=== PATIENT | female | born 1965 ===

== ENCOUNTER 2024-09-29 12:50 | Emergency (ER) | payer SELFPAY ==
[2024-09-29 12:53] VITALS: BMI 35.9
[2024-09-29 13:09] VITALS: BP 190/78; PULSE 88; RESP 19; TEMP 37; O2SAT 96
--- NOTE | 2024-09-29 13:14 | PD.EDDENTL ---
ED Dental RME/HPI General Chief complaint: General Adult/Misc Complain Stated complaint: L FACIAL NERVE PAIN X YESTERDAY Time Seen by Provider: 09/29/24 13:10 Arrival date/time: 09/29/24 12:50 Limitations: no limitations RME / HPI RME / HPI Narrative: Patient is a 58-year-old female with no chronic medical history is here today with dental pain. She developed left lower dental pain yesterday. Denies any trauma. Has no fevers or chills. Has no drooling or trismus. Has no neck pain. She has no other acute complaints. She states he has a history depression but no other diagnoses. Related Data Previous Rx's ?Medication ?Instructions ?Recorded amoxicillin 875 mg-potassium 1 tab PO BID #14 tabs 09/29/24 clavulanate 125 mg tablet ibuprofen 600 mg tablet 600 mg PO TID PRN pain #20 tabs 09/29/24 Allergies Allergy/AdvReac Type Severity Reaction Status Date / Time No Known Allergies Allergy Verified 09/29/24 12:58 Review of Systems Review of Systems Systems Reviewed: All systems reviewed, normal except as documented ED Exam General Limitations: Present no limitations General appearance: Present alert, anxious and in distress Head Head exam: Present atraumatic Eye Eye exam: Present normal appearance, PERRL and EOMI ENT ENT exam: Present normal exam, normal oropharynx, mucous membranes moist and other (no gumline erythema or fluctuance ) Neck Neck exam: Present normal inspection, full ROM and trachea midline Chest Chest inspection: Present normal inspection and symmetric chest wall rise Respiratory Respiratory exam: Present normal lung sounds bilaterally Cardiovascular Cardiovascular exam: Present regular rate, normal rhythm and normal heart sounds Abdominal Exam Abdominal exam: Present soft and normal bowel sounds Extremities Exam Extremities exam: Present normal inspection and full ROM Back Exam Back exam: Present normal inspection and full ROM Neurological Exam Neurological exam: Present alert and oriented X3 Psychiatric Psychiatric exam: Present normal affect and anxious Skin Skin exam: Present warm, dry, intact and normal color Course Quality Measures none Orders Category Date Time Status Amoxicillin/Pot Clav 875 [Augmentin 875] Med 09/29/24 13:14 Discontinued 1 tab PO X1 ONE HYDROcodone*/APAP 5/325 [Amelia 5/325] Med 09/29/24 13:14 Discontinued 1 tab PO X1 ONE Ibuprofen Tab [Motrin Tab] Med 09/29/24 13:14 Discontinued 600 mg PO X1 ONE Vital Signs Vital signs: Vital Signs Temperature 98.6 F 09/29/24 13:09 Pulse Rate 88 09/29/24 13:09 Respiratory Rate 19 09/29/24 13:09 Blood Pressure 190/78 H 09/29/24 13:09 Pulse Oximetry (%) 96 09/29/24 13:09 Oxygen Delivery Method Room Air 09/29/24 13:09 Dental / Oral MDM Narrative MDM Narrative:: 58 year old female here with 1 day history of left lower dental pain. Denies trauma, fevers, or drooling. On exam patient is uncomfortable. But nontoxic-appearing. She has no trismus or drooling. She has no stridor. She has no gumline erythema or abscess. Patient is being discharged with a prescription of Augmentin. She is asked to use Tylenol ibuprofen for comfort. Return here for any worsening changes otherwise follow-up with dentistry. Patient data External records reviewed:: None Clinical information provided by:: patient Social determinants that could affect healthcare access:: none Patient has the following chronic illnesses:: Depression How is presenting disease/condition affected by chronic disease/condition?: no chronic disease Evaluation data The following diagnostics were reviewed and interpreted by me:: other (specify) (n/a) Lab and/or radiology exams considered but not ordered:: n/a Interpretation Summary: n/a Medications / Prescriptions Medications or Prescriptions considered but not ordered:: n/a Medication administrations:: Medication Administration History Discontinued Medications Hydrocodone Bitart/Acetaminophen (Hydrocodone/Apap 5/325 Tablet) 1 tab PO X1 ONE Stop: 09/29/24 13:15 Last Admin: 09/29/24 13:45 Dose: 1 tab Documented By: Amoxicillin/Clavulanate Potassium (Amoxicillin/Pot Clav 875 Tablet) 1 tab PO X1 ONE Stop: 09/29/24 13:15 Last Admin: 09/29/24 13:45 Dose: 1 tab Documented By: Ibuprofen (Ibuprofen Tab 600 Mg Tablet) 600 mg PO X1 ONE Stop: 09/29/24 13:15 Last Admin: 09/29/24 13:45 Dose: 600 mg Documented By: See above Consultations Consultation(s) initiated? (list below): No Diagnosis Dental Differential Diagnosis: dental caries, toothache and dental abscess Most likely diagnosis given after review of the tests above:: Dentalgia Admission Indicated Admission indicated?: not indicated Admission Request Was there a request for admission?: No Disposition Plan Disposition Plan: Discharge Discharge Attestation Discharge Attestation: The patient and all family members were given an opportunity to ask questions and understood the discharge instructions. Discharge instructions specifically effects, indications for sooner follow up or return to the emergency department, and the expected course of current diagnosis. Patient condition: Stable Discharge Plan Plan Patient Disposition: HOME (Self Care) Patient condition on transfer: Stable Prescriptions/Referrals Prescriptions/Med Rec: New amoxicillin-pot clavulanate 875-125 mg tablet 1 tab PO BID Qty: 14 0RF ibuprofen 600 mg tablet 600 mg PO TID PRN (Reason: pain) Qty: 20 0RF Problem List Clinical Impression: Pain, dental Patient/Caregiver Discharge Instructions Additional Instructions: -Use the provided medication as prescribed. Ibuprofen 600 mg josefa 8 hours. Augmentin is an antibiotic, take this every 12 hours until gone. -Follow up with a dentist as soon as possible. -Return here as needed for any emergent changes. Print Language: Urdu Stand Alone Forms: [facility] Award Info., Patient Portal Info Letter
[2024-09-29] MEDS: AMOXICILLIN/POT CLAV 875 TABLET 1 TAB PO (13:45)
[2024-09-29] MEDS: IBUPROFEN TAB 600 MG TABLET PO (13:45)
[2024-09-29] MEDS: HYDROcodone/APAP 5/325 TABLET 1 TAB PO (13:45)
== END 2024-09-29 14:05 | disposition home or self-care (01) ==
PROVIDERS: Emergency Provider Emergency Medicine
DX: K08.89 Other specified disorders of teeth and supporting structures (principal)
CPT/HCPCS: 99283; A9270